=== PATIENT | female | born 1940 | race Native Hawaiian/Other Pacific Islander ===

== ENCOUNTER 2017-08-30 11:47 | Inpatient (IN) | payer MEDICARE, OTHER ==
[~2017-08-30] VITALS: Ht 152.4 cm; Wt 61.2 kg
[2017-08-30] MEDS ORDERED: [UNRECOGNIZED DRUG - REMARK] (11:57)
[2017-08-30] MEDS ORDERED: IV NORMAL SALINE 1000 ML BAG IV ONE (12:00)
[2017-08-30 12:16] LABS: BASOPHILS % (AUTO) 0.7 % (0.0-2.0); EOSINOPHILS % (AUTO) 0.5 % (0.0-7.0); HEMATOCRIT 32.7 % (31.2-41.9); LYMPHOCYTES # (AUTO) 1.2 K/uL (20.0-40.0); LYMPHOCYTES % (AUTO) 27.6 % (20.5-51.5); MEAN CORPUSCULAR HEMOGLOBIN 30.6 uug (24.7-32.8); MEAN CORPUSCULAR HGB CONC 34 g/dL (32.3-35.6); MEAN CORPUSCULAR VOLUME 90.7 fL (75.5-95.3); MONOCYTES # (AUTO) 0.3 K/uL (2.0-10.0); MONOCYTES % (AUTO) 6.9 % (0.0-11.0); NEUTROPHILS # (AUTO) 2.8 K/uL (1.8-8.9); NEUTROPHILS % (AUTO) 64.3 % (38.5-71.5); PLATELET COUNT (AUTO) 188 K/uL (179-408); WHITE BLOOD COUNT (AUTO) 4.4 K/uL (3.8-11.8)
[2017-08-30 12:27] LABS: CARBON DIOXIDE 26 mmol/L (21-32); CHLORIDE 104 mmol/L (98-107); CREATININE 0.9 mg/dL (0.6-1.3); GLUCOSE 94 mg/dL (74-106); POTASSIUM 3.7 mmol/L (3.5-5.1); UREA NITROGEN, BLOOD 22 mg/dL (7-18)
--- NOTE | 2017-08-30 12:31 | NUR ---
BIB EMS FOR C/O LEFT HIP PAIN AFTER FALL. ROD GAVE HER IV PAIN MEDICINE.
[2017-08-30 12:34] LABS: ALANINE AMINOTRANSFERASE 22 U/L (14-59); ALKALINE PHOSPHATASE 56 U/L (50-136); ASPARTATE AMINOTRANSFERASE 25 U/L (15-37); BILIRUBIN,DIRECT 0.1 mg/dL (0.0-0.2); BILIRUBIN,TOTAL 0.3 mg/dL (0.2-1.0); TOTAL PROTEIN, SERUM 7.4 g/dL (6.4-8.2)
--- NOTE | 2017-08-30 12:45 | NUR ---
PATIENT STATES PAIN HAS RETURNED. DR RICKETTS NOTIFIED.
[2017-08-30] MEDS ORDERED: HYDROMORPHONE 1 MG/1 ML DISP.SYRIN IV ONE (13:00)
[2017-08-30] MEDS ORDERED: HYDROMORPHONE 4 MG/1 ML DISP.SYRIN ONE (13:05)
--- NOTE | 2017-08-30 13:20 | NUR ---
PATIENT STATES PAIN AHS DIMINISHED.
--- NOTE | 2017-08-30 14:45 | NUR ---
FAMILY AT BEDSIDE. PATIENT AND FAMILY AWARE OF PENDING ADMISSION.
--- NOTE | 2017-08-30 15:02 | NUR ---
REPORT GIVEN TO ROXANA KINSEY.
--- NOTE | 2017-08-30 15:16 | NUR ---
URINE SENT TO LAB
--- NOTE | 2017-08-30 15:45 | NUR ---
PT ARRIVED FROM ER, STABLE VITAL SIGNS, COOPERATIVE, PAIN 8/10, NORCO GIVEN FOR PAIN, PT CALM, COOPERATIVE, SPEAKS TRINIDADIAN AND YI, CAN VERBALIZE NEEDS AND PAIN.
[2017-08-30 16:30] VITALS: BP 162/57
[2017-08-30] MEDS ORDERED: ZOLPIDEM 5 MG TABLET PO PRN (17:00)
[2017-08-30] MEDS ORDERED: MORPHINE SULFATE 2 MG/1 ML DISP.SYRIN IV PRN (17:00)
[2017-08-30] MEDS ORDERED: ONDANSETRON 4 MG/2 ML VIAL IV PRN (17:00)
[2017-08-30] MEDS ORDERED: Z GUARD REMEDY PASTE 57 GM TUBE TOP PRN (17:00)
[2017-08-30] MEDS ORDERED: ACETAMINOPHEN 325 MG TABLET PO PRN (17:00)
[2017-08-30] MEDS: HYDROCODONE/APAP 5-325MG TABLET PO PRN (17:22)
[2017-08-30] MEDS: IV NS 1000 ML 1,000 ML IV PRN (17:44)
[2017-08-31] VITALS: BP 108/44
[2017-08-31] MEDS: HYDROCODONE/APAP 5-325MG TABLET PO PRN ×2 (01:09→11:34)
[2017-08-31 04:00] VITALS: BP 100/70
--- NOTE | 2017-08-31 05:10 | NUR ---
Pt has been alert, oriented x 3, cooperative throughout my shift. VSS on room air. C/O nausea early in my shift, but states "I drank some warm water and it's better." Family at bedside and pt eating a small amount of food at that time without emesis. Pt turned carefully q2-3 hours and positioned for comfort, advised pt of importance of movement as much as possible for skin protection/comfort - verbalized understanding and participated in positioning. She did complain of pain in left hip earlier this morning with a slight amt of nausea, IV Zofran administered at that time and 5 mg Dubach dose - tolerated well. Monitoring for pt safety/pain control/changes.
[2017-08-31] MEDS: IV NS 1000 ML 1,000 ML IV PRN ×2 (05:28→23:40)
[2017-08-31 06:41] LABS: CARBON DIOXIDE 24 mmol/L (21-32); CHLORIDE 106 mmol/L (98-107); CREATININE 0.8 mg/dL (0.6-1.3); GLUCOSE 83 mg/dL (74-106); MAGNESIUM 1.9 mg/dL (1.8-2.4); PHOSPHOROUS 3.4 mg/dL (2.5-4.9); POTASSIUM 3.5 mmol/L (3.5-5.1); UREA NITROGEN, BLOOD 12 mg/dL (7-18)
[2017-08-31 06:57] LABS: BASOPHILS % (AUTO) 0.7 % (0.0-2.0); EOSINOPHILS % (AUTO) 0.2 % (0.0-7.0); HEMOGLOBIN 9.7 g/dL (10.9-14.3); LYMPHOCYTES # (AUTO) 1.4 K/uL (20.0-40.0); LYMPHOCYTES % (AUTO) 28.3 % (20.5-51.5); MEAN CORPUSCULAR HEMOGLOBIN 30.7 uug (24.7-32.8); MEAN CORPUSCULAR HGB CONC 34 g/dL (32.3-35.6); MEAN CORPUSCULAR VOLUME 91.5 fL (75.5-95.3); MONOCYTES # (AUTO) 0.5 K/uL (2.0-10.0); MONOCYTES % (AUTO) 10.6 % (0.0-11.0); NEUTROPHILS % (AUTO) 60.2 % (38.5-71.5); PLATELET COUNT (AUTO) 156 K/uL (179-408); RED BLOOD CELL COUNT(AUTO) 3.17 MIL/uL (3.63-4.92); WHITE BLOOD COUNT (AUTO) 4.9 K/uL (3.8-11.8)
--- NOTE | 2017-08-31 08:00 | NUR ---
client in pain, pain medication given
[2017-08-31] MEDS: HYDROCODONE/APAP 10-325 MG TABLET PO PRN ×3 (09:50→23:38)
--- NOTE | 2017-08-31 10:00 | NUR ---
repositioned to make client more comfortable, pain noted by client.
--- NOTE | 2017-08-31 11:30 | NUR ---
client is sleeping comfortably, no pain noted
[2017-08-31 11:50] VITALS: BP 112/44
[2017-08-31 16:20] VITALS: BP 124/48
--- NOTE | 2017-08-31 17:00 | NUR ---
noted client eating dinner, states she felt better
--- NOTE | 2017-08-31 19:00 | NUR ---
pain medication given. in bed comfortably.
[2017-08-31 20:00] VITALS: BP 103/49
[2017-09-01] VITALS (10 sets, daily range): BP systolic 119–155; BP diastolic 51–70
--- NOTE | 2017-09-01 05:00 | NUR ---
NSG: PT RECEIVED A/O X 4. C/O LEFT HIP PAIN. MEDICATED WITH 1 TAB NORCO. PT RECEIVED 1 UNIT PRBC, NO REACTION NOTED. TOLERATED WELL. V/S STABLE. NPO FOR LEFT HIP ORIF TODAY. CONT TO MONITOR.
[2017-09-01 05:22] LABS: BASOPHILS % (AUTO) 0.4 % (0.0-2.0); EOSINOPHILS % (AUTO) 0.5 % (0.0-7.0); HEMATOCRIT 31.3 % (31.2-41.9); HEMOGLOBIN 10.5 g/dL (10.9-14.3); LYMPHOCYTES # (AUTO) 1.3 K/uL (20.0-40.0); LYMPHOCYTES % (AUTO) 26.1 % (20.5-51.5); MEAN CORPUSCULAR HEMOGLOBIN 30.1 uug (24.7-32.8); MEAN CORPUSCULAR HGB CONC 34 g/dL (32.3-35.6); MEAN CORPUSCULAR VOLUME 89.2 fL (75.5-95.3); MONOCYTES # (AUTO) 0.5 K/uL (2.0-10.0); MONOCYTES % (AUTO) 9.7 % (0.0-11.0); NEUTROPHILS # (AUTO) 3.2 K/uL (1.8-8.9); NEUTROPHILS % (AUTO) 63.3 % (38.5-71.5); PLATELET COUNT (AUTO) 137 K/uL (179-408); RED BLOOD CELL COUNT(AUTO) 3.51 MIL/uL (3.63-4.92); WHITE BLOOD COUNT (AUTO) 5.1 K/uL (3.8-11.8)
[2017-09-01 05:39] LABS: CARBON DIOXIDE 27 mmol/L (21-32); CHLORIDE 108 mmol/L (98-107); CREATININE 0.7 mg/dL (0.6-1.3); GLUCOSE 108 mg/dL (74-106); MAGNESIUM 1.9 mg/dL (1.8-2.4); POTASSIUM 3.6 mmol/L (3.5-5.1); UREA NITROGEN, BLOOD 11 mg/dL (7-18)
[2017-09-01] MEDS ORDERED: FENTANYL CITRATE 250 MCG/5 ML AMPUL ONE (07:31)
[2017-09-01] MEDS ORDERED: MIDAZOLAM HCL 2 MG/2 ML VIAL ONE (07:31)
[2017-09-01] MEDS ORDERED: SUCCINYLCHOLINE CHLORIDE 200 MG/10 ML VIAL ONE (07:32)
--- NOTE | 2017-09-01 08:00 | NUR ---
Pt is in no acute distress. Kept pt NPO for surgery today scheduled at 900. Consent signed and preop checklist done. IV on right f/a intact infusing as ordered. Call light is within reach.
[2017-09-01] MEDS ORDERED: FENTANYL CITRATE 100 MCG/2 ML AMPUL ONE (11:34)
[2017-09-01] MEDS ORDERED: LIDOCAINE HCL 2% 20 ML VIAL MC ONE (11:40)
[2017-09-01] MEDS ORDERED: SEVOFLURANE 250 ML BOTTLE IH ONE (11:40)
[2017-09-01] MEDS ORDERED: IV NORMAL SALINE 1000 ML BAG IV ONE (11:40)
[2017-09-01] MEDS ORDERED: ONDANSETRON 4 MG/2 ML VIAL IV ONE (11:40)
[2017-09-01] MEDS ORDERED: IRR NORMAL SALINE IRRIGATION 2000 ML BOTTLE IR ONE (11:40)
[2017-09-01] MEDS ORDERED: PROPOFOL 200 MG/20 ML BOTTLE IV ONE (11:40)
[2017-09-01] MEDS ORDERED: HYDROMORPHONE 1 MG/1 ML DISP.SYRIN IV PRN (12:15)
[2017-09-01] MEDS: MORPHINE SULFATE 4 MG/1 ML DISP.SYRIN IV PRN ×2 (13:06→15:18)
[2017-09-01] MEDS: CEFAZOLIN 1 G in PREMIXED 1 EACH IV SCH (16:55)
[2017-09-01] MEDS: RIVAROXABAN 10 MG TABLET PO SCH (17:07)
--- NOTE | 2017-09-01 18:30 | NUR ---
Dressing on left hip intact. pt able to wiggle her toes and feel senstation. F/c drained yellow urine. Pt's pain managed with morphine as ordered. No c/o pain. No c/o n/v. Call light is within reach.
--- NOTE | 2017-09-01 19:00 | NUR ---
PATIENT IN BED, NO SOB NO CHEST PAIN NOTED, SIDDIQUI CATH PATENT DRAINING WITH YELLOW COLOR URINE IN MODERATE AMOUNT, CONT ON PAIN MANAGEMENT, KEPT CLEAN AND DRY, TURN AND REPOSITION. CALL LIGHT WITHIN REACH.
[2017-09-01] MEDS: HYDROCODONE/APAP 5-325MG TABLET PO PRN (20:38)
--- NOTE | 2017-09-01 21:15 | NUR ---
PATIENT AWAKE VERBALLY RESPONSIVE, PATIENT COMPLAIN OF LEFT CHEST PAIN, BUT NON RADIATING TO THE LEFT ARM, LEFT JAW, OR LEFT BACK, MEDICATED PATIENT FOR PAIN EARLIER FOR LEVEL OF 7 PAIN, SON AT BEDSIDE, REPOSITION PATIENT FOR COMFORT, STILL COMPLAIN OF PAIN, RESPIRATION EVEN AND UNLABORED, OXYGEN SAT 98% AT 3LPM NC. BP 134/60, PULSE 75, RR 18, NO S/S OF DISTRESS. CONT TO MONITOR.
--- NOTE | 2017-09-01 22:10 | NUR ---
ASSESSED PATIENT AND PATIENT STATED "SHE FEELS BETTER NOW, NO MORE PAIN ON LEFT CHEST AREA". DR. OLSON WAS NOTIFIED REGARDING THE EPISODE OF LEFT CHEST AREA PAIN, WITH NO NEW ORDER AT THIS TIME, JUST TO CONTINUE TO MONITOR THE PATIENT.
[2017-09-01] MEDS: IV NS 1000 ML 1,000 ML IV PRN (23:39)
[2017-09-02 00:46] VITALS: BP 121/48
[2017-09-02] MEDS: CEFAZOLIN 1 G in PREMIXED 1 EACH IV SCH (00:56)
[2017-09-02] MEDS: HYDROCODONE/APAP 5-325MG TABLET PO PRN ×2 (01:54→13:29)
[2017-09-02 04:00] VITALS: BP 134/54
[2017-09-02 06:25] LABS: BASOPHILS % (AUTO) 0.4 % (0.0-2.0); EOSINOPHILS % (AUTO) 0.3 % (0.0-7.0); HEMATOCRIT 29.6 % (31.2-41.9); LYMPHOCYTES # (AUTO) 1.2 K/uL (20.0-40.0); LYMPHOCYTES % (AUTO) 23.8 % (20.5-51.5); MEAN CORPUSCULAR HEMOGLOBIN 30.2 uug (24.7-32.8); MEAN CORPUSCULAR HGB CONC 34 g/dL (32.3-35.6); MEAN CORPUSCULAR VOLUME 89.5 fL (75.5-95.3); MONOCYTES # (AUTO) 0.6 K/uL (2.0-10.0); MONOCYTES % (AUTO) 11.8 % (0.0-11.0); NEUTROPHILS # (AUTO) 3.2 K/uL (1.8-8.9); NEUTROPHILS % (AUTO) 63.7 % (38.5-71.5); PLATELET COUNT (AUTO) 124 K/uL (179-408)
[2017-09-02 06:32] LABS: CARBON DIOXIDE 25 mmol/L (21-32); CHLORIDE 108 mmol/L (98-107); CREATININE 0.7 mg/dL (0.6-1.3); GLUCOSE 109 mg/dL (74-106); MAGNESIUM 1.8 mg/dL (1.8-2.4); POTASSIUM 3.1 mmol/L (3.5-5.1); UREA NITROGEN, BLOOD 8 mg/dL (7-18)
--- NOTE | 2017-09-02 08:30 | NUR ---
AWAKE COOPERATE WELL NO PAIN OR SOB DSG LEFT HIP D/I WITH ICE PK INPLACE NEUROVASCULAR WNL ON FALL PRECAUTION BED ALARM ON AND CALL LIGHT IN REACH
[2017-09-02] MEDS: MORPHINE SULFATE 4 MG/1 ML DISP.SYRIN IV PRN ×2 (09:57→17:10)
--- NOTE | 2017-09-02 10:00 | NUR ---
OOB UP WITH PHYSICAL THERAPY STILL WEAK UNABLE TO WALK AT THIS TIME
[2017-09-02 12:21] VITALS: BP 124/58
[2017-09-02] MEDS ORDERED: POTASSIUM CHLORIDE 20 MEQ TAB.PRT.SR PO ONE (14:45)
[2017-09-02] MEDS: IV NS 1000 ML 1,000 ML IV PRN (15:06)
[2017-09-02 15:19] VITALS: BP 137/65
--- NOTE | 2017-09-02 17:00 | NUR ---
STABLE HEMODYNAMICS STATUS PAIN UNDER CONTROL SAFETY MEASURE PROVIDED CALL LIGHT IN REACH AND BED ALARM ON
[2017-09-02] MEDS: RIVAROXABAN 10 MG TABLET PO SCH (17:12)
--- NOTE | 2017-09-02 19:15 | NUR ---
PATIENT AWAKE, NO SOB NO CHEST PAIN, CONT ON PAIN MANAGEMENT, TURN AND REPOSITION MUCH POSSIBLE, LEFT HIP DRESSING INTACT, KEPT CLEAN AND DRY, BED AVILA GIVEN FOR BLADDER ELIMINATION, KEPT CLEAN AND DRY. CALL LIGHT WITHIN REACH.
[2017-09-02 20:24] VITALS: BP 126/59
[2017-09-03] MEDS: HYDROCODONE/APAP 5-325MG TABLET PO PRN ×4 (00:43→22:24)
[2017-09-03] MEDS: MAGNESIUM HYDROXIDE 30 ML LIQUID UDC PO PRN (05:25)
[2017-09-03] MEDS: IV NS 1000 ML 1,000 ML IV PRN ×2 (05:26→18:41)
--- NOTE | 2017-09-03 06:14 | NUR ---
PATIENT SLEPT MOST OF THE NIGHT, NO SOB NO CHEST PAIN, CONT ON PAIN MANAGEMENT, KEPT CLEAN AND DRY. DRESSING ON LEFT HIP INTACT, KEPT COMFORTABLE.
[2017-09-03 06:34] LABS: BASOPHILS % (AUTO) 0.4 % (0.0-2.0); EOSINOPHILS % (AUTO) 0.7 % (0.0-7.0); HEMATOCRIT 28.3 % (31.2-41.9); HEMOGLOBIN 9.6 g/dL (10.9-14.3); LYMPHOCYTES # (AUTO) 1.3 K/uL (20.0-40.0); LYMPHOCYTES % (AUTO) 27.7 % (20.5-51.5); MEAN CORPUSCULAR HEMOGLOBIN 30.2 uug (24.7-32.8); MEAN CORPUSCULAR HGB CONC 34 g/dL (32.3-35.6); MEAN CORPUSCULAR VOLUME 89.5 fL (75.5-95.3); MONOCYTES # (AUTO) 0.5 K/uL (2.0-10.0); MONOCYTES % (AUTO) 10.9 % (0.0-11.0); NEUTROPHILS # (AUTO) 2.8 K/uL (1.8-8.9); NEUTROPHILS % (AUTO) 60.3 % (38.5-71.5); PLATELET COUNT (AUTO) 131 K/uL (179-408); RED BLOOD CELL COUNT(AUTO) 3.17 MIL/uL (3.63-4.92); WHITE BLOOD COUNT (AUTO) 4.7 K/uL (3.8-11.8)
[2017-09-03 06:35] LABS: CARBON DIOXIDE 24 mmol/L (21-32); CHLORIDE 110 mmol/L (98-107); CREATININE 0.6 mg/dL (0.6-1.3); GLUCOSE 111 mg/dL (74-106); POTASSIUM 3.7 mmol/L (3.5-5.1); UREA NITROGEN, BLOOD 9 mg/dL (7-18)
[2017-09-03 06:48] VITALS: BP 138/73
--- NOTE | 2017-09-03 08:00 | NUR ---
awake alert cooperate well dsg lt hip d/i with ice pk inplace neurovascular check wnl ON ASPIRATION AND FALL PRECAUTION CALL LIGHT IN REACH AND BED ALARM ON
[2017-09-03 11:04] VITALS: BP 121/61
--- NOTE | 2017-09-03 13:30 | NUR ---
PATIENT WAS URINATE SMALL AMT CHECK WITH PVR. URINE RESIDUAL 733 ML. NOTIFIED . F/C INSERT 16FR. URINE OUT 400ML.
[2017-09-03 15:30] VITALS: BP 154/70
[2017-09-03] MEDS: RIVAROXABAN 10 MG TABLET PO SCH (17:11)
--- NOTE | 2017-09-03 18:00 | NUR ---
STABLE CONDITION. PAIN UNDER CONTROL. NO ACUTE RESPIRATORY DISTRESS. SAFETY MEASURE PROVIDE. BED ALARM ON AND CALL LIGHT WITHIN REACH.
--- NOTE | 2017-09-03 19:00 | NUR ---
RECEIVED PATIENT IN BED, NO SOB NO CHEST PAIN, LEFT HIP DRESSING INTACT, SIDDIQUI CATH INTACT DRAINING WITH YELLOW COLOR URINE IN MODERATE AMOUNT, CONT ON PAIN IN MANAGEMENT, CONT TO MAINITOR.
[2017-09-03 20:00] VITALS: BP 143/62
--- NOTE | 2017-09-03 21:14 | NUR ---
PLACE CALL TO DR. BLUE (ORTHO SURGEON) OBTAINED ORDER TO CHANGE LEFT HIP DRESSING AND DISCHARGE INSTRUCTIONS/ DISCHARGE ORDER.
[2017-09-04 05:11] VITALS: BP 148/65
--- NOTE | 2017-09-04 07:30 | NUR ---
Received report from production machine computer operator. Client in bed supine with HOB at 45 degrees, client is awake, alert and oriented times 3. Client is able to verbalize needs. Two IV's one on the right 22 g and one on the right wrist 22 g. Client is in no pain, no distress, no SOB, and discomfort.
[2017-09-04] MEDS: IV NS 1000 ML 1,000 ML IV PRN ×2 (08:14→21:57)
[2017-09-04] MEDS: HYDROCODONE/APAP 5-325MG TABLET PO PRN (08:56)
--- NOTE | 2017-09-04 09:00 | NUR ---
Client stated no BM, MOM was offered and client refused stating "maybe later".
[2017-09-04] MEDS ORDERED: HYDR-3326 PO (09:31)
[2017-09-04] MEDS ORDERED: RIVA10TA PO (09:31)
--- NOTE | 2017-09-04 10:00 | NUR ---
Physical Therapy was noted in the room. Client was premedicated with [place] beforehand. Noted client had difficulty bearing weight on her right foot. Client in non weight bearing on her left leg
[2017-09-04 11:40] VITALS: BP 141/64
--- NOTE | 2017-09-04 14:00 | NUR ---
Noted with family member by her side. Client has orders for discharge but pending location verification is in the process. [facility] has been suggested but client prefers a rehab center in [place]. Pediatric Sports Medicine Specialist is aware, arrangements are pending
[2017-09-04 16:02] VITALS: BP 132/60
[2017-09-04] MEDS: RIVAROXABAN 10 MG TABLET PO SCH (18:43)
--- NOTE | 2017-09-04 18:55 | NUR ---
Family member noted at bedside. No s/s of pain, SOB, distress or discomfort. There was no updates for possible discharge rehabilitation centers.
--- NOTE | 2017-09-04 19:00 | NUR ---
ALERT ORIENT, NO SOB NO CHEST PAIN, CONT PAIN MANAGEMENT, SIDDIQUI CATH PATENT DRAINING WITH YELLOW COLOR URINE IN MODERATE AMOUNT, KEPT CLEAN AND DRY.
[2017-09-04 20:00] VITALS: BP 148/68
[2017-09-04] MEDS: MORPHINE SULFATE 4 MG/1 ML DISP.SYRIN IV PRN (21:31)
[2017-09-05 04:46] VITALS: BP 138/60
--- NOTE | 2017-09-05 07:20 | NUR ---
Received client in bed awake, alert and oriented times 4. Client is spine with HOB at 45 degrees. Able to state needs. No apparent s/s of pain, SOB, distress, discomfort
--- NOTE | 2017-09-05 07:32 | NUR ---
ALERT, SLEPT MOST OF THE NIGHT, NO SOB NO CHEST PAIN CONT PAIN MANAGEMENT, SIDDIQUI CATH PATENT DRAINING WITH YELLOW COLOR URINE IN MODERATE AMOUNT, KEPT COMFORTABLE.
[2017-09-05] MEDS: MAGNESIUM HYDROXIDE 30 ML LIQUID UDC PO PRN (08:47)
[2017-09-05] MEDS: HYDROCODONE/APAP 5-325MG TABLET PO PRN ×2 (10:14→20:23)
--- NOTE | 2017-09-05 10:45 | NUR ---
Called granddaughter as requested, granddaughter was concern client was not picking up. It was noted client had to visitors.
--- NOTE | 2017-09-05 11:00 | NUR ---
Noted client with Physical Therapy, tolerated well.
[2017-09-05] MEDS: IV NS 1000 ML 1,000 ML IV PRN (11:31)
--- NOTE | 2017-09-05 12:00 | NUR ---
Client noted with family members in her room.
[2017-09-05 12:01] VITALS: BP 127/91
[2017-09-05 15:41] VITALS: BP 128/60
--- NOTE | 2017-09-05 17:00 | NUR ---
Asked if client was in any pain and denied pain medications at this, client stated "maybe later".
[2017-09-05] MEDS: RIVAROXABAN 10 MG TABLET PO SCH (18:12)
--- NOTE | 2017-09-05 18:54 | NUR ---
Noted client had large BM, client was changed, kept clean and comfortable.
--- NOTE | 2017-09-05 19:04 | NUR ---
No status update on a rehabilitation center for the client
[2017-09-05 19:56] VITALS: BP 155/71
--- NOTE | 2017-09-05 20:00 | NUR ---
Patient resting comfortably in bed. AAO x4. Family at bedside. C/o pain on the left hip. Will follow through with intervention. No acute distress. Safety measures maintained. Call light and personal belongings within reach. Will continue to monitor.
[2017-09-06] MEDS: IV NS 1000 ML 1,000 ML IV PRN (00:59)
[2017-09-06 04:38] VITALS: BP 126/69
[2017-09-06] MEDS: HYDROCODONE/APAP 5-325MG TABLET PO PRN ×2 (10:38→18:35)
[2017-09-06 11:26] VITALS: BP 120/56
[2017-09-06 15:06] VITALS: BP 118/59
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
--- NOTE | 2017-09-06 18:30 | NUR ---
IV D/C'D AMBULANCE PICK-UP SCHEDULED AT 1700---STILL NO AMBULANCE. PT. MEDICATED WITH NORCO FOR C/O PAIN. XARELTO DOSE GIVEN. ALL DISCHARGE INSTRUCTIONS INCLUDING FOLLOW-UP REVIEWED WITH PT. WRITTEN AND VERBAL INSTRUCTIONS. REPORT CALLED TO Jose GOODMAN AT [facility].
[2017-09-06] MEDS: RIVAROXABAN 10 MG TABLET PO SCH (18:33)
== END 2017-09-06 19:40 | DRG 481 ==
LOC: ER 11:47 → TELE 15:10 → MED 09-02 16:25
PROVIDERS: ADMIT Internal Medicine; ATTEND Internal Medicine
PROC: 30233N1 Transfusion of Nonautologous Red Blood Cells into Peripheral Vein, Percutaneous Approach (ICD-10-PCS; 2017-09-01)
PROC: 0QS704Z Reposition Left Upper Femur with Internal Fixation Device, Open Approach (ICD-10-PCS; principal; 2017-09-01 09:10)
DX: S72.142A Displaced intertrochanteric fracture of left femur, initial encounter for closed fracture (principal); J98.11 Atelectasis; M32.9 Systemic lupus erythematosus, unspecified; D62 Acute posthemorrhagic anemia; E78.5 Hyperlipidemia, unspecified; W01.0XXA Fall on same level from slipping, tripping and stumbling without subsequent striking against object, initial encounter; Y93.01 Activity, walking, marching and hiking; Y92.89 Other specified places as the place of occurrence of the external cause; Y99.0 Civilian activity done for income or pay; K21.9 Gastro-esophageal reflux disease without esophagitis; M19.90 Unspecified osteoarthritis, unspecified site; E87.6 Hypokalemia; M81.0 Age-related osteoporosis without current pathological fracture; I70.90 Unspecified atherosclerosis; I10 Essential (primary) hypertension
CPT/HCPCS: 36415; 70030-TC; 71010; 73502; 73503; 76000; 83735; 84100; 85025; 85610; 85730; 86850; 86900; 86901; 86920; 93005; 93307; 97110; 97116; 97530; A4217; A4649; A4663; J0330; J0690; J1170; J2250; J2270; J2405; J3010; J3490; J7030; P9016-BL; P9021